=== PATIENT | female | born 1980 | race Caucasian/White ===

== ENCOUNTER 2016-10-13 15:13 | Emergency (ER) | payer OTHER ==
[2016-10-13 16:03] VITALS: BP 119/84; PULSE 92; RESP 16; TEMP 98.3; O2SAT 94
--- NOTE | 2016-10-13 16:49 | UCPHY ---
H & P Time Seen by Provider: 10/13/16 15:57 Patient Type: Established HPI/ROS: This patient has throat pain. She attributes this to gagging herself and is worried that she may have injured her throat. She explains that she has a history of bulimia and purchase. She had done well or proceeding weeks but had a relapse of drinking and purging over the past week. She is drinking up to 10 shot today of alcohol and she called her therapist regarding her symptoms including the sore throat therapist encouraged her to come in for evaluation concerned that she might have an esophageal injury. The patient reports 3/10 to the upper pharynx and thinks it might be from her long fingernail scratching her upper pharynx. ROS: No fevers or chills. No hemoptysis. No headache. No chest pain. No belly pain. No nausea currently. 10 point ROS is otherwise negative. Past Medical/Surgical History: Bulimia Alcohol abuse Smoking Status: Former smoker Physical Exam: Vital signs are normal General Appearance: Alert, no distress. Eyes: Pupils equal and round no pallor or injection. ENT, Mouth: Mucous membranes moist. Oropharynx: No erythema. No intraoral lacerations or posterior pharyngeal lacerations. No dysphonia. No drooling or stridor. Respiratory: There are no retractions, lungs are clear to auscultation. Cardiovascular: Regular rate and rhythm. Gastrointestinal: Abdomen is soft and nontender, no masses, bowel sounds normal. Neurological: Alert with no focal deficits. GCS 15. Patient has minimal alcohol halitosis but does not seem clinically intoxicated. Skin: Warm and dry, no rashes. Musculoskeletal: Neck is supple nontender. Extremities are symmetrical, full range of motion. Psychiatric: Mood and affect are normal DIFFERENTIAL DIAGNOSIS: After history and physical exam differential diagnosis was considered for pharyngeal inflammation from vomiting versus mild abrasion from fingernails. Alcohol abuse Constitutional: Initial Vital Signs Temperature (C) 36.8 C 10/13/16 15:45 Heart Rate 92 10/13/16 15:45 Respiratory Rate 16 10/13/16 15:45 Blood Pressure 119/84 H 10/13/16 15:45 O2 Sat (%) 94 10/13/16 15:45 O2 Delivery Mode Room Air Allergies/Adverse Reactions: adhesive Allergy (Verified 10/13/16 15:54) latex Allergy (Verified 10/13/16 15:54) tramadol Allergy (Verified 10/13/16 15:54) Home Medications: Medication Instructions Recorded Betsye 10/13/16 chlordiazePOXIDE [Librium 25 mg 25 - 50 mg PO QID PRN #30 cap 10/13/16 (*)] Medical Decision Making ED Course/Re-evaluation: Clinically this patient appears well. No clinical evidence to suggest [place] so or other concerning findings. I did loan counselor regarding alcohol abuse encouraged her to taper back in alcohol, going Librium and start rehab. Patient will follow up with her therapist and physician this week. Departure - Departure Disposition: Home, Routine, Self-Care Clinical Impression: Throat pain, Purging, Alcohol abuse Condition: Good Instructions: Abuse of Alcohol (ED) Additional Instructions: Diagnoses: 1. Throat pain 2. purging 3. Alcohol abuse Plan: Cut back on her alcohol gradually and steadily and use Librium as needed to prevent withdrawal symptoms. Follow up with primary care physician this week. Tylenol for throat pain as needed. Try to stop purging. No driving while using alcohol or Librium. Go to the emergency department for any significant worsening despite the treatment plan. Referrals: Sweta Grossman, DO [Primary Care Provider] - As per Instructions Prescriptions: chlordiazePOXIDE [Librium 25 mg (*)] 25 - 50 mg PO QID PRN #30 cap PRN Reason: alcohol withdrawal symptoms - PQRS PQRS Measurement: NA
== END 2016-10-13 16:57 | disposition home or self-care (01) ==
LOC: CED 15:13
DX: R07.0 Pain in throat (principal); F50.2 Bulimia nervosa; F10.10 Alcohol abuse, uncomplicated; Z87.891 Personal history of nicotine dependence
CPT/HCPCS: G0463-PO

== ENCOUNTER 2016-11-26 09:52 | Emergency (ER) | payer OTHER ==
[2016-11-26 10:10] VITALS: RESP 16
[2016-11-26] MEDS ORDERED: NS 1,000 ML IV ONE (10:28)
[2016-11-26] MEDS ORDERED: LORazepam 2 MG/ML INJ IVP ONE (10:28)
[2016-11-26 10:35] LABS: % IMMATURE GRANULYOCYTES 0.3 % (0.0-1.1); ABSOLUTE IMMATURE GRANULOCYTES 0.02 10^3/uL (0.00-0.10); ADD DIFF? NO; ADD MORPH? NO; ADD SCAN? NO; ATYPICAL LYMPHOCYTE FLAG 0 (0-99); FRAGMENT RBC FLAG 0 (0-99); HEMATOCRIT 44.3 % (38.0-47.0); HEMOGLOBIN 15.9 g/dL (12.6-16.3); LEFT SHIFT FLG 0 (0-99); LIPEMIA HEMOLYSIS FLAG 90 (0-99); MEAN CELL HEMOGLOBIN 32.5 pg (27.9-34.1); MEAN CELL HEMOGLOBIN CONCENTR. 35.9 g/dL (32.4-36.7); MEAN CELL VOLUME 90.6 fL (81.5-99.8); MEAN PLATELET VOLUME 9.4 fL (8.7-11.7); PLATELET CLUMPS FLAG 10 (0-99); PLATELET COUNT 226 10^3/uL (150-400); RED BLOOD CELL COUNT 4.89 10^6/uL (4.18-5.33); RED CELL DISTRIBUTION WIDTH 14.5 % (11.5-15.2)
--- NOTE | 2016-11-26 10:46 | UCPHY ---
H & P Patient Type: Established Chief Complaint Nursing Narrative: Pt w 2 wks of 10 shots vodka daily. States helps her cope w eating disorder. Today shaking and nausea .c/o w/d s/s Time Seen by Provider: 11/26/16 10:09 HPI/ROS: CHIEF COMPLAINT: Alcohol withdrawal History by patient HISTORY OF PRESENT ILLNESS: 36-year-old woman with a history of binge and purge eating disorder and alcohol abuse who presents complaining of tremulousness and anxiety due to alcohol withdrawal after a recent 10 day drinking binge. Patient states she does this intermittently despite the fact she is in treatment for her eating disorder, and that she uses alcohol to try not to eat. She has been seen in the emergency department several times for similar episodes but has never been admitted overnight, into the ICU or had a seizure. She did take 2 Librium at home with some relief. She states she has also been having diarrhea because she has been taking magnesium to help herself purge. She also complains of some abdominal pain. She denies other drug use. She denies . She has an IUD. REVIEW OF SYSTEMS: As in HPI, and all other systems reviewed and are negative - Personal History LMP (Females 10-55): IUD In Place - Medical/Surgical History Hx Asthma: No Hx Chronic Respiratory Disease: No Hx Diabetes: No Hx Cardiac Disease: No Hx Renal Disease: No Hx Cirrhosis: No Hx Alcoholism: Yes Hx HIV/AIDS: No Hx Splenectomy or Spleen Trauma: No Other PMH: endometriosis, ETOH ABUSE, BREAST AUG, FOOT SURG, TONSILECTOMY, EATING DISORDER, expl lap - Family History Significant Family History: No pertinent family hx - Social History Smoking Status: Former smoker Alcohol Use: Heavy Drug Use: None - Physical Exam Exam: General Appearance: Alert, nontoxic-appearing. Eyes: Pupils equal and round no pallor or injection. ENT, Mouth: Mucous membranes moist. Mild tongue tremor Respiratory: Normal, effort, There are no retractions, lungs are clear to auscultation. Cardiovascular: Regular rate and rhythm. Gastrointestinal: Abdomen is soft and nontender, no masses, bowel sounds normal. Neurological: Awake, alert and oriented x 3, no pronator drift, normal gait, no pronator drift, positive resting tremor, no clonus Skin: Warm and dry, no rashes. Musculoskeletal: Neck is supple nontender. Extremities are symmetrical, full range of motion. Psychiatric: Patient has normal affect, there is no agitation. Constitutional: Initial Vital Signs Temperature (C) 36.5 C 11/26/16 10:07 Heart Rate 65 11/26/16 10:07 Respiratory Rate 16 11/26/16 10:07 Blood Pressure 119/85 H 11/26/16 10:07 O2 Sat (%) 98 11/26/16 10:07 O2 Delivery Mode Room Air Allergies/Adverse Reactions: adhesive Allergy (Verified 11/26/16 10:10) latex Allergy (Verified 11/26/16 10:10) tramadol Allergy (Verified 11/26/16 10:10) Home Medications: Medication Instructions Recorded Vyvanse 10/13/16 chlordiazePOXIDE [Librium 25 mg 25 - 50 mg PO QID PRN #30 cap 10/13/16 (*)] Medical Decision Making ED Course/Re-evaluation: 36-year-old woman with longstanding history of eating disorder and intermittent alcohol abuse and alcohol withdrawal presents today with evidence of mild alcohol withdrawal. She was given IV fluids and Ativan with resolution of her symptoms. Labs are unremarkable. She has follow-up with both her primary care physician and her therapist. We also discussed the need to have her alcohol use addressed in her therapy. Patient states she was recently prescribed naloxone to help with alcohol but she has not begun taking it. Patient was discharged home in improved condition. - Data Points Laboratory Results: Laboratory Results 11/26/16 10:15 11/26/16 10:15 11/26/16 11/26/16 11/26/16 10:15 10:15 10:15 WBC 6.63 10^3/uL 10^3/uL (3.80-9.50) RBC 4.89 10^6/uL 10^6/uL (4.18-5.33) Hgb 15.9 g/dL g/dL (12.6-16.3) Hct 44.3 % % (38.0-47.0) MCV 90.6 fL fL (81.5-99.8) MCH 32.5 pg pg (27.9-34.1) MCHC 35.9 g/dL g/dL (32.4-36.7) RDW 14.5 % % (11.5-15.2) Plt Count 226 10^3/uL 10^3/uL (150-400) MPV 9.4 fL fL (8.7-11.7) Neut % (Auto) 75.1 % H % (39.3-74.2) Lymph % (Auto) 17.0 % % (15.0-45.0) [place] % (Auto) 5.3 % % (4.5-13.0) Eos % (Auto) 1.7 % % (0.6-7.6) Baso % (Auto) 0.6 % % (0.3-1.7) Nucleat RBC Rel Count 0.0 % % (0.0-0.2) Absolute Neuts (auto) 4.98 10^3/uL 10^3/uL (1.70-6.50) Absolute Lymphs (auto) 1.13 10^3/uL 10^3/uL (1.00-3.00) Absolute Monos (auto) 0.35 10^3/uL 10^3/uL (0.30-0.80) Absolute Eos (auto) 0.11 10^3/uL 10^3/uL (0.03-0.40) Absolute Basos (auto) 0.04 10^3/uL 10^3/uL (0.02-0.10) Absolute Nucleated RBC 0.00 10^3/uL 10^3/uL (0-0.01) Immature Gran % 0.3 % % (0.0-1.1) Immature Gran # 0.02 10^3/uL 10^3/uL (0.00-0.10) Sodium 135 mEq/L mEq/L (134-144) Potassium 4.1 mEq/L mEq/L (3.5-5.2) Chloride 95 mEq/L L mEq/L (97-110) Carbon Dioxide 25 mEq/l mEq/l (22-31) Anion Gap 15 mEq/L mEq/L (8-16) BUN 12 mg/dL mg/dL (7-23) Creatinine 0.6 mg/dL mg/dL (0.6-1.0) Estimated GFR > 60 Glucose 87 mg/dL mg/dL (70-100) Calcium 9.1 mg/dL mg/dL (8.5-10.4) Magnesium 1.5 mg/dL L mg/dL (1.6-2.3) Total Bilirubin 0.8 mg/dL mg/dL (0.1-1.4) Conjugated Bilirubin 0.2 mg/dL mg/dL (0.0-0.5) Unconjugated Bilirubin 0.6 mg/dL mg/dL (0.0-1.1) AST 53 IU/L H IU/L (14-46) ALT 37 IU/L IU/L (9-52) Alkaline Phosphatase 88 IU/L IU/L (38-126) Total Protein 8.1 g/dL g/dL (6.3-8.2) Albumin 4.5 g/dL g/dL (3.5-5.0) Lipase 263.0 IU/L IU/L (23-300) Specimen Hemolysis Cancelled Ethyl Alcohol Cancelled Medications Given: Discontinued Medications Sodium Chloride (Ns) 1,000 mls @ 0 mls/hr IV ONCE ONE PRN Reason: Wide Open Stop: 11/26/16 10:29 Last Admin: 11/26/16 10:30 Dose: 1,000 mls Lorazepam (Ativan Injection) 2 mg IVP EDNOW ONE Stop: 11/26/16 10:29 Last Admin: 11/26/16 10:45 Dose: 2 mg Departure - Departure Disposition: Home, Routine, Self-Care Clinical Impression: Alcohol withdrawal Qualifiers: Complication of substance-induced condition: uncomplicated Qualified Code(s): F10.230 - Alcohol dependence with withdrawal, uncomplicated Condition: Fair Instructions: Alcohol Withdrawal (ED) Additional Instructions: You were seen by Dr. Velma Faulkner today. Return for any worsening or new concerns. Follow up with her therapist at [facility] and your primary care physician on Monday Referrals: Sweta Grossman DO [Primary Care Provider] - As per Instructions - PQRS PQRS Measurement: na
[2016-11-26 10:52] LABS: ALANINE AMINOTRANSFERASE 37 IU/L (9-52); ALBUMIN 4.5 g/dL (3.5-5.0); ALKALINE PHOSPHATASE 88 IU/L (38-126); ANION GAP 15 mEq/L (8-16); ASPARTATE AMINOTRANSFERASE 53 IU/L (14-46); BILIRUBIN,TOTAL 0.8 mg/dL (0.1-1.4); BILIRUBIN-CONJUGATED 0.2 mg/dL (0.0-0.5); BILIRUBIN-UNCONJUGATED 0.6 mg/dL (0.0-1.1); CALCIUM 9.1 mg/dL (8.5-10.4); CARBON DIOXIDE 25 mEq/l (22-31); CHLORIDE 95 mEq/L (97-110); CREATININE 0.6 mg/dL (0.6-1.0); GLOMERULAR FILTRATION RATE > 60; GLUCOSE 87 mg/dL (70-100); MAGNESIUM 1.5 mg/dL (1.6-2.3); POTASSIUM 4.1 mEq/L (3.5-5.2); SODIUM 135 mEq/L (134-144); TOTAL PROTEIN 8.1 g/dL (6.3-8.2)
[2016-11-26 11:58] VITALS: O2SAT 96
[2016-11-26 12:32] VITALS: BP 128/91; PULSE 77; TEMP 99.3
== END 2016-11-26 12:35 | disposition home or self-care (01) ==
LOC: CED 09:52
DX: F10.239 Alcohol dependence with withdrawal, unspecified (principal); F41.9 Anxiety disorder, unspecified; R19.7 Diarrhea, unspecified; F50.81 Binge eating disorder; Z87.891 Personal history of nicotine dependence
CPT/HCPCS: 80048-PO; 80076-PO; 83690-PO; 83735-PO; 85025-PO; 96361-PO; 96374-PO; 99215-PO; G0463-PO; J2060

== ENCOUNTER → 2017-08-26 | Outpatient (CLI) | payer BC | LOC: FIMAGING 08:11 | PROVIDERS: ATTEND Family Medicine | DX: S83.411A Sprain of medial collateral ligament of right knee, initial encounter (principal); M22.41 Chondromalacia patellae, right knee ==

== ENCOUNTER 2017-10-12 04:20 | Emergency (ER) | payer BC ==
[2017-10-12 04:28] VITALS: TEMP 97.3; O2SAT 97
--- NOTE | 2017-10-12 04:43 | EDPHY ---
H & P Time Seen by Provider: 10/12/17 04:24 HPI/ROS: 36-year-old female presents complaining of feeling her heart is racing. She has a history of a binge purge eating disorder, intermittent alcohol bingeing and cocaine abuse. She also has a history of anxiety She states she has been on alcohol binge for the last week and her last drink was around midnight. Review of systems As per HPI General no fever no chills no weakness HEENT no eye pain no eye discharge. No eye redness, no sore throat Respiratory no cough, no shortness of breath Cardiac no chest pain, no peripheral edema, positive heart palpitations GI no abdominal pain, no diarrhea, no constipation, no nausea, no vomiting no flank pain, no hematuria, no dysuria Musculoskeletal no myalgias, no joint pain Heme no easy bruising, no easy bleeding Endo no polyuria, no polydipsia Skin no rashes, no pruritus Neuro no syncope, no dizziness, no headaches history of alcohol abuse, cocaine abuse Past Medical/Surgical History: alcohol abuse eating disorder breast augmentation Social History: Binge drinks alcohol, uses cocaine Smoking Status: Former smoker Physical Exam: 36-year-old female, alert, oriented no acute distress, afebrile Vital signs stable normal blood pressure pulse 78 HEENT atraumatic normocephalic, extraocular muscles intact, anicteric Oropharynx negative for erythema negative exudate, tolerating her own secretions Neck supple no meningismus Lungs clear to auscultation bilaterally Heart regular rate and rhythm without murmur rub or gallop Abdomen nondistended normoactive bowel sounds soft nontender Back no CVA tenderness, no step-offs, no spinal tenderness Extremities no cyanosis clubbing or edema Neuro alert and oriented, no focal deficits Constitutional: Initial Vital Signs Temperature (C) 36.3 C 10/12/17 04:23 Heart Rate 78 10/12/17 04:23 Respiratory Rate 18 10/12/17 04:23 Blood Pressure 123/71 H 10/12/17 04:23 O2 Sat (%) 97 10/12/17 04:23 O2 Delivery Mode Room Air Allergies/Adverse Reactions: adhesive Allergy (Verified 11/26/16 10:10) latex Allergy (Verified 11/26/16 10:10) tramadol Allergy (Verified 11/26/16 10:10) Home Medications: Medication Instructions Recorded NK [No Known Home Meds] 10/12/17 Medical Decision Making ED Course/Re-evaluation: Patient seen for concern for racing heart. Normal physical exam Normal heart rate, normal oxygen saturation Impression Alcohol abuse Cocaine abuse Eating disorder Plan [facility] for detox dc home pcp Differential Diagnosis: alcohol withdrawal, cocaine abuse, other drug use, depression, anxiety Departure - Departure Disposition: Home, Routine, Self-Care Clinical Impression: Alcohol abuse, Cocaine abuse Condition: Good Instructions: Cocaine Abuse (ED), Abuse of Alcohol (ED) Referrals: [facility] [Outside] - As per Instructions
[2017-10-12 04:57] VITALS: BP 109/77; PULSE 82; RESP 16
== END 2017-10-12 04:55 | disposition home or self-care (01) ==
LOC: CED 04:20
DX: F10.10 Alcohol abuse, uncomplicated (principal); F14.10 Cocaine abuse, uncomplicated; Z87.891 Personal history of nicotine dependence; Z91.040 Latex allergy status

== ENCOUNTER → 2018-05-02 | Outpatient (CLI) | payer BC | LOC: CIMAGING 12:40 | PROVIDERS: ATTEND Family Medicine | DX: N83.292 Other ovarian cyst, left side (principal); N28.89 Other specified disorders of kidney and ureter | CPT/HCPCS: 76856-PO ==

== ENCOUNTER 2018-10-11 19:36 | Emergency (ER) | payer BC ==
--- NOTE | 2018-10-11 20:04 | EDPHY ---
H & P Stated Complaint: c/o flashing light across eye x 4 days-has URI x 4 days - taking herbs and O Time Seen by Provider: 10/11/18 19:50 HPI/ROS: CHIEF COMPLAINT: Seeing flashes of light HISTORY OF PRESENT ILLNESS: Patient is a 37-year-old female who comes to the emergency department stating the last 4 days she has had occasional flashes of bright white light across her entire visual field. She states that it seems to be both eyes but she is not sure. She does not have any pain in her eyes. No blurry vision. No double vision. No injection or irritation or drainage. No floaters or dark spots. She does have occasional mild headaches but not currently. She also has been taking multiple herbal medications for a upper respiratory infection that she has had for the last few days. She associated her symptoms with these. She states that the flashes only last for about half of a 2nd and happened 3-4 times per day. No chest pain. No focal weakness or deficits. She does have a history of eating disorder bingeing and purging the and states that she has been told she could have a stroke when she has purging. She recently got out of a treatment facility for this. Severity: Moderate Modifying factors: None REVIEW OF SYSTEMS: Constitutional: denies: chills, fever, recent illness, recent injury EENTM: See HPI denies: blurred vision, double vision Respiratory: denies: cough, shortness of breath Cardiac: denies: chest pain, irregular heart rate, lightheadedness, palpitations Gastrointestinal/Abdominal: denies: abdominal pain, diarrhea, nausea, vomiting, blood streaked stools Genitourinary: denies: dysuria, frequency, hematuria, pain Musculoskeletal: denies: joint pain, muscle pain Skin: denies: lesions, rash, jaundice, bruising Neurological: denies: headache, numbness, paresthesia, tingling, dizziness, weakness Hematologic/Lymphatic: denies: blood clots, easy bleeding, easy bruising Immunologic/allergic: denies: HIV/AIDS, transplant 10 systems reviewed and negative except as noted EXAM: GENERAL: Well-appearing, well-nourished and in no acute distress. HEAD: Atraumatic, normocephalic. EYES: Pupils equal round and reactive to light, extraocular movements intact, sclera anicteric, conjunctiva are normal. Visual acuity 20/20 in each eye. Fundus examined and no abnormality seen on direct examination. Examined with ultrasound. No billowing or visible bleeding. No tenderness. ENT: TMs normal, nares patent, oropharynx clear without exudates. Moist mucous membranes. NECK: Normal range of motion, supple without lymphadenopathy or JVD. LUNGS: Breath sounds clear to auscultation bilaterally and equal. No wheezes rales or rhonchi. HEART: Regular rate and rhythm without murmurs, rubs or gallops. ABDOMEN: Soft, nontender, normoactive bowel sounds. No guarding, no rebound. No masses appreciated. BACK: No CVA tenderness, no spinal tenderness, step-offs or deformities EXTREMITIES: Normal range of motion, no pitting or edema. No clubbing or cyanosis. NEUROLOGICAL: Cranial nerves II through XII grossly intact. Normal speech, normal gait. 5/5 strength, normal movement in all extremities, normal sensation , normal reflexes PSYCH: Normal mood, normal affect. SKIN: Warm, dry, normal turgor, no visible rashes or lesions. Source: Patient Exam Limitations: No limitations - Personal History LMP (Females 10-55): IUD In Place Current Tetanus Diphtheria and Acellular Pertussis (TDAP): Yes - Medical/Surgical History Hx Asthma: No Hx Chronic Respiratory Disease: No Hx Diabetes: No Hx Cardiac Disease: No Hx Renal Disease: No Hx Cirrhosis: No Hx Alcoholism: Yes Hx HIV/AIDS: No Hx Splenectomy or Spleen Trauma: No Other PMH: endometriosis, ETOH ABUSE, BREAST AUG, FOOT SURG, TONSILECTOMY, EATING DISORDER, expl lap - Family History Significant Family History: No pertinent family hx - Social History Smoking Status: Former smoker Alcohol Use: None Constitutional: Initial Vital Signs Temperature (C) 36.6 C 10/11/18 19:44 Heart Rate 95 10/11/18 19:44 Respiratory Rate 18 10/11/18 19:44 Blood Pressure 125/75 H 10/11/18 19:44 O2 Sat (%) 97 10/11/18 19:44 O2 Delivery Mode Room Air Allergies/Adverse Reactions: adhesive Allergy (Verified 11/26/16 10:10) latex Allergy (Verified 11/26/16 10:10) tramadol Allergy (Verified 11/26/16 10:10) Home Medications: Medication Instructions Recorded Ativan 10/11/18 Otc Cold Herbs 10/11/18 Umcka 10/11/18 Vyvanse 10/11/18 Xanax 10/11/18 Zertex 10/11/18 Medical Decision Making ED Course/Re-evaluation: Her visual acuity is normal. Fundus appears normal. No abnormality seen on ultrasound. No pain or sign of abrasion. No erythema or discharge. Currently no headache. She cannot isolate whether does her right or left eye. It is difficult to isolate. Also she is asymptomatic now. I will have her follow up with Ophthalmology. Differential Diagnosis: Partial list of the Differential diagnosis considered include but were not limited to; adjusted judgment, retinal detachment, migraine and although unlikely based on the history and physical exam, I also considered temporal arteritis, CVA, foreign body, conjunctivitis, glaucoma. I discussed these differential diagnoses and the plan with the patient as well as the usual and expected course. The patient understands that the diagnosis is provisional and that in medicine we are not always correct and that further workup is often warranted. Usual and customary warnings were given. All of the patient's questions were answered. The patient was instructed to return to the emergency department should the symptoms at all worsen or return, otherwise to followup with the physician as we discussed. Departure - Departure Disposition: Home, Routine, Self-Care Clinical Impression: Changes in vision Condition: Fair Instructions: Visual Floaters (ED) Referrals: Sweta Grossman DO [Primary Care Provider] - As per Instructions Khoi Jackson MD [Medical Doctor] - 1-2 days without fail
[2018-10-11 20:34] VITALS: BP 120/76
== END 2018-10-11 20:33 | disposition home or self-care (01) ==
LOC: CED 19:36
DX: H53.19 Other subjective visual disturbances (principal)
CPT/HCPCS: 99282-ER

== ENCOUNTER → 2018-10-15 | Outpatient (CLI) | payer BC | LOC: CIMAGING 07:22 | PROVIDERS: ATTEND Family Medicine | DX: N83.9 Noninflammatory disorder of ovary, fallopian tube and broad ligament, unspecified (principal); Z97.5 Presence of (intrauterine) contraceptive device | CPT/HCPCS: 76856-PO ==

== ENCOUNTER → 2018-10-19 | Outpatient (CLI) | payer BC | LOC: FIMAGING 18:43 ==

== ENCOUNTER → 2019-01-25 | Outpatient (CLI) | payer MEDICAID | LOC: FIMAGING 12:34 ==